=== PATIENT | female | born 1970 | race Two or more races ===

== ENCOUNTER 2018-06-27 08:38 | Outpatient (CLI) | payer OTHER ==
[~2018-06-27 08:38] MED LIST: PAXIL40 MG PO
== END 2018-06-27 08:48 | disposition home or self-care (01) ==
LOC: SONOGRAMA 08:38
DX: E04.1 Nontoxic single thyroid nodule (principal)

== ENCOUNTER 2023-08-28 09:00 | Emergency (ER) | payer OTHER ==
[~2023-08-28] VITALS: Ht 149.9 cm; Wt 94.8 kg
[2023-08-28] MEDS ORDERED: COZAAR50 MG PO (09:01)
[2023-08-28] MEDS ORDERED: PROVERA2.5 MG PO (09:02)
[2023-08-28] MEDS ORDERED: AMBIEN CR6.25 MG PO (09:02)
[2023-08-28] MEDS ORDERED: CELEXA20 MG PO (09:02)
[2023-08-28 11:56] LABS: HEMATOCRIT 39.1 % (36.0-45.00); HEMOGLOBIN 13.2 g/dL (12.0-15.00); MEAN CELL VOLUME 82.6 fL (80.00-100.00); MEAN CORPUSCULAR HGB CONC 33.9 g/dl (32.0-36.0); PLATELET COUNT 220 K/uL (150-450); RED BLOOD COUNT 4.73 M/uL (4.00-6.00); RED CELL DISTRIBUTION WIDTH 13.8 % (11.5-14.5)
== END 2023-08-28 13:20 ==
LOC: ER 09:01
PROVIDERS: General Practice
DX: J10.1 Influenza due to other identified influenza virus with other respiratory manifestations (principal); B34.9 Viral infection, unspecified; R53.81 Other malaise; I10 Essential (primary) hypertension; Z88.2 Allergy status to sulfonamides